=== PATIENT | female | born 1995 | race Caucasian/White ===

== ENCOUNTER 2016-11-17 16:30 | Emergency (ER) | payer OTHER ==
[~2016-11-17] VITALS: Ht 149.9 cm; Wt 66.4 kg
[2016-11-17 16:39] VITALS: Ht 149.9 cm; Wt 66.4 kg
--- NOTE | 2016-11-17 16:45 | ERPDOC ---
Departure Disposition Decision Date: Nov 17, 2016 Disposition Decision Time: 18:15 Disposition: 01 DISCHARGED HOME, SELF-CARE Impression Impression Impression: Primary Impression: GERD (gastroesophageal reflux disease) Esophagitis presence: with esophagitis Qualified Codes: K21.0 - Gastro- esophageal reflux disease with esophagitis Severity: Moderate Condition: Improved Seen By: Mid-level only Referrals: DESMOND LUTHER MD (Family) COOKIE CHAVIRA MD Patient Instructions: Gastroesophageal Reflux Disease (ED), Pharyngitis (ED) Problems/Meds/Labs Reviewed?: Yes Medications reviewed and manag: Yes Additional Instructions: Your rapid strep was negative. Take your already prescribed Nexium (this medication must be taken daily to be effective). Take OTC pepcid or Zantac twice daily for first 4-5 days after restarting Nexium. Follow treatment plan. Dr. Chavira's nurse will call you tomorrow to set appointment. Follow up care ordered?: Yes Mental Status: Alert, Oriented HPI - General Medical General Stated Complaint: HURTS TO SWALLOW/HARD TO BREATHE Time Seen by Provider: 16:44 Source: patient HPI - General Medical Initial Comments 21 YO F presents to ED with report of feeling like something is caught in her esophagus. Patient has been able to keep fluids down and says she has only eaten a little solid food because it "licea". Says it hurts to swallow for past 2 days. Patient says has a sore throat in the morning which improves throughout the day. Patient does have a hx. of GERD and has not being taking the Nexium her PCP instructed her to take. Patient says she does not think this is GERD. Patient states she had an EGD several years ago and was told it was "terrible down there", when asked what she meant by that she said her esophagus. Patient could not elaborate on anything else regarding the finding of EGD. Pain Scale: Now: 7/10 Associated Symptoms: DENIES: cough, diaphoresis, fever/chills, malaise, nausea/ vomiting, shortness of breath Allergies: Coded Allergies: Penicillins (Verified Allergy, Intermediate, 11/17/16) Past History Past Medical History Metabolic: DENIES: diabetes Cardiac: DENIES: angina Respiratory: DENIES: asthma GI: GERD Female: DENIES: renal insufficiency Neurological: DENIES: seizures Musculoskeletal: DENIES: rheumatoid arthritis Hematologic: DENIES: anemia Psychological: depression Surgical History General: EGD Family History Family PMH: FOUND: other (noncontributory) Social History Current Occupational Status: student Review of Systems Constitutional Constitutional: DENIES: chills, dizziness, fever, weakness Eyes General: DENIES: erythema, exudate Lids/Accessories: DENIES: erythema, swelling ENMT Ears: DENIES: pain Hearing: DENIES: hearing loss Sinuses: DENIES: congestion, rhinorrhea Mouth/Throat: sore throat Cardiovascular Cardiac: DENIES: chest pain, murmur Pulmonary Respiratory: DENIES: cough, dyspnea GI Upper Abdomen: pain, see HPI, DENIES: nausea, vomiting Lower Abdomen: DENIES: diarrhea, pain General: DENIES: dysuria, pain Musculoskeletal General: DENIES: joint pain, pain, tenderness Integumentary Skin: DENIES: color change, itching, rash Neurological General: DENIES: ataxia, change in strength, numbness, paralysis/paresis, weakness Psychiatric Psychiatric: DENIES: anxiety, depression, nervousness Physical Exam General General Nourishment: well nourished, well developed, no acute distress, adult General Body Habitus: well groomed Vitals and Pain First Documented Vital Signs Date Time Temp Pulse Resp B/P Pulse Ox O2 Delivery O2 Flow Rate FiO2 11/17/16 16:39 98.7 105 16 122/58 96 Room Air Weight: Kilograms: Height (feet): Height (inches): Triage Pain Scale: Eyes (brief) Eyes Brief: found: EOMI, PERRL ENMT (brief) ENMT Brief: FOUND: TM clear, TM good light reflex, mucosa moist, other ( tonsils 2+ tara with erythema), pharnyx erythema, NOT FOUND: nasal exudate, nasal swelling Neck (brief) Neck: FOUND: trachea midline, NOT FOUND: adenopathy, tenderness, thyromegaly Respiratory (brief) Respiratory: FOUND: clear all junior, equal bilaterally, symmetrical Cardiovascular Auscultation: FOUND: S1, S2, rate (98), regular Abdomen Inspection: NOT FOUND: distention Palpation: FOUND: soft, NOT FOUND: hepatomegaly, involuntary guarding, rebound , splenomegaly, tender (no reproducible pain to palpation), voluntary guarding Auscultation: FOUND: normoactive (x4) Musculoskeletal (brief) Musculoskeletal Brief: NOT FOUND: deformity, loss of motion Integumentary (brief) Integumentary Brief: FOUND: dry, pink, warm Neurologic (brief) Neurological Brief: FOUND: CN w/o gross def to obs, motor-no gross deficits, sensory-no gross deficits Psychiatric (brief) Psychiatric Brief: FOUND: alert, oriented, NOT FOUND: normal affect (anxious) Differential Diagnoses Considering: Abscess, Pharyngitis Considering: GERD, Ulcer, Other (esophagitis) Progress Results/Orders Orders Procedure Category Date Status Time Strep A Antigen Screen LAB 11/17/16 Complete 16:54 G.I. Cocktail PHA 11/17/16 Complete (/Maalox/Lidocaine 17:00 Group A Strep Culture MARKELL 11/17/16 Complete 17:33 Ketorolac (Toradol) PHA 11/17/16 Complete 18:30 Lab Results Laboratory Tests Test 11/17/16 17:00 Group A Streptococcus Screen Negative Medications Current ED Medications Pharmacy Profile Note (/Maalox/ Lidocaine Soln) 30 ml O ONCE PO Last administered on 11/17/16 17:01; Start 11/17/16 at 17:00; Stop 11/17/16 at 17:01 ; Status DC Ketorolac Tromethamine (Toradol) 60 mg O ONCE IM Last administered on 18:28; Start 11/17/16 at 18:30; Stop 11/17/16 at 18:31; Status DC Progress Progress Patient was able to keep GI cocktail down and approx. 16 oz of water in the ED with out emesis or water coming back up. I explained to patient that she does not have a food bolus because she is keeping fluids down, and reports she has eaten solid food as well. I discussed conversation I had with Dr. Chavira with patient. I believe patient has GERD with some mild esophagitis. I discussed treatment plan, follow up with Dr. Chavira and return precautions which patient verbalized understanding. VS improved. Patient reports she is feeling better after Toradol. Consult/PCP Consult/PCP : Type of discussion: Phone Consult/PCP Discussion Details I discussed patient's HPI, PMH, exam findings with Dr. Chavira. Dr. Chavira said he would come by the ED and get patient's phone number so his nurse can set up office appointment for follow up. I spoke with Dr. Chavira in the ED. Patient is able to keep fluids down. Dr. Chavira is not concerned that patient has a retained food bolus. ANNABELLE BALKE APRN Nov 17, 2016 16:45
[2016-11-17] MEDS ORDERED: G.I. COCKTAIL 30ml PO ONE (17:00)
[2016-11-17] MEDS ORDERED: ESOM20CA PO (17:23)
[2016-11-17] MEDS ORDERED: NORE1TAB62 PO (17:23)
[2016-11-17] MEDS ORDERED: SERT25TA PO (17:23)
[2016-11-17] MEDS ORDERED: CIPR-212 PO (17:23)
--- OUTSIDE RECORDS SUMMARY | 2016-11-17 17:25 | XMS REPORT | Summary of Care ---
Author Author Marcus Serrano, [employer] Unknown Address [address] [place], [place] [id number] Phone Unavailable Care Team Providers Care Cosmetology Educator Name Role Phone Outside, Physician PP Unavailable Functional Status Functional Status Health Issues* Name Dates Details Functional status health issues are not documented Status: Cognitive Status Health Issues* Name Dates Details Cognitive status health issues are not documented Status: Problems Name Dates Details Fracture of nasal bone (802.0, S02.2XXA) Status: Active Nasal septal deviation (470, J34.2) Status: Active Closed fracture of nasal bone, initial encounter (802.0, S02.2XXA) Status: Active Fracture of nasal bones, with routine healing, subsequent encounter (V54.19, S02.2XXD) Status: Active Hypertrophy of tonsils (474.11, J35.1) Status: Active Medications Name Dates Details NexIUM 20 MG Oral Packet * Started 12-Nov-2014 Active Allergies and Adverse Reactions Name Dates Details Penicillins Status: Active Procedures Procedure Dates Details History of Esophagoscopy History of Closed Treatment Of Nasal Bone Fracture Procedures not documented Immunization Name Dates Details Immunizations not documented Social History Smoking Status* Unknown if ever smoked Vital Signs Date Test Result Details No Known Vitals to report Results Date Description Value Details 12-Nov-2014 13:37 CT FACIAL BONES Comments: Exam Date: 12: 49Dictation Date: 13:37 XC FACIAL BONES (Better) 15:20 CBC w/ Auto Diff 7150 WBC 10.9 K/uL (Better) Range: 4.5-11.0 RBC 4.77 mil/uL (Better) Range: 3.60-5.00 HGB 14.8 g/dL (Better) Range: 12.0-16.0 HCT 43.5 % (Better) Range: 36.0-48.0 MCV 91.3 fL (Better) Range: 80.0-99.0 MCH 31.1 pg (Better) Range: 27.3-32.5 MCHC 34.1 % (Better) Range: 32.0-36.0 RDW 13.0 % (Better) Range: 11.6-14.8 PLATELETS 350 K/uL (Better) Range: 150-400 MPV 7.1 fL (Better) Range: 6.0-11.0 %NEUTRO 59.3 % (Better) Range: 37.0-80.0 %LYMPHS 30.3 % (Better) Range: 13.0-50.0 %MONO 5.6 % (Better) Range: 0.0-12.0 %EOS 2.4 % (Better) Range: 0.0-7.0 %BASO 0.5 % (Better) Range: 0.0-2.5 %MANOHAR 2.1 % (Better) Range: 0.0-5.0 NEUTRO 6.4 K/uL (Better) Range: 2.0-6.9 LYMPHS 3.3 K/uL (Better) Range: 0.6-3.4 MONOS 0.6 K/uL (Better) Range: 0.0-0.9 EOS 0.3 K/uL (Better) Range: 0.0-0.7 BASO 0.1 K/uL (Better) Range: 0.0-0.2 15:45 SERUM TEST 8020 Comments: atr asc on 11/15/14 SERUM TEST Negative (Better) Range: Negative Comments: Internal Control: Acceptable----- Plan of Care Planned Observations* Name Dates Details Planned Goals not documented Goal Instructions * Instructions not documented Encounters Appointment; Mitchel Velazquez Encounter Diagnosis: Problem not documented On 04-Dec-2014 10:15 Appointment; Mitchel Velazquez Encounter Diagnosis: Problem not documented On 15-Nov-2014 11:15 Appointment; Mitchel Velazquez Encounter Diagnosis: Problem not documented On 12-Nov-2014 14:30
--- OUTSIDE RECORDS SUMMARY | 2016-11-17 17:25 | XMS REPORT | Summary of Care ---
Author Author Marcus Serrano, [employer] Unknown Address [address] [place], [place] [id number] Phone Unavailable Care Team Providers Care Favor Maker Name Role Phone Outside, Physician PP Unavailable [...] bone, initial encounter (802.0, S02.2XXA) Status: Active Medications Name Dates Details NexIUM 20 MG Oral Packet * Started 12-Nov-2014 Active Allergies and Adverse Reactions Name Dates Details Penicillins Status: Active Procedures Procedure Dates Details History of Esophagoscopy Procedures not documented Immunization Name Dates Details [...] Dates Details Planned Goals not documented Goal Planned Encounters* Appointment; Provider: Mitchel Velazquez On 15-Nov-2014 11:15 Instructions * Instructions not documented Encounters Appointment; Mitchel Velazquez Encounter Diagnosis: Problem not documented On 12-Nov-2014 14:30
[2016-11-17] MEDS ORDERED: KETOROLAC 60mg/2ml INJECTION IM ONE (18:30)
--- NOTE | 2016-11-17 18:58 | NUR ---
PROVIDER LUBA IN ROOM
[2016-11-17 19:06] VITALS: BP 139/64; PULSE 125; RESP 16; TEMP 98.7; O2SAT 96
--- NOTE | 2016-11-17 19:06 | NUR ---
DEPART VERBAL AND WRITTEN DISCHARGE INSTRUCTIONS GIVEN AND UNDERSTOOD. CONDITION STABLE. RELEASED AMBULATORY.
== END 2016-11-17 19:06 | disposition home or self-care (01) ==
LOC: ED 16:30
DX: K21.0 Gastro-esophageal reflux disease with esophagitis (principal)
CPT/HCPCS: 87081; 87430; 96372; 99283; J1885; J7999

== ENCOUNTER → 2016-11-19 | Outpatient (CLI) | payer OTHER ==
[~2016-11-19] MED LIST: CIPR-212 PO; ESOM20CA PO; NORE1TAB62 PO; SERT25TA PO
--- NOTE | 2016-11-19 10:29 | DI ---
Indication:ITS.REASON: R13.14 DYSPHAGIA Procedure:ESOPHAGRAM ESOPHAGRAM: Technique:After ingesting air crystals, the patient swallowed thick and thin barium without difficulty. Fluoroscopic imaging was obtained in the upright LPO, supine AP, and right lateral positions. Findings:The esophagus is normal. Esophageal motility appears normal. The cricopharyngeus muscle relaxes completely. There is no Zenker's diverticulum. No hiatal hernia or gastroesophageal reflux is visualized. Impression: Normal esophagram. Fluoroscopy dose: 38.98 mGy (Cumulative air kerma) Duc Colbert RPA/IAN performed this under my direct supervision. .
== END ==
LOC: IMA 08:23
PROVIDERS: ATTEND Surgery
DX: R13.14 Dysphagia, pharyngoesophageal phase (principal)

== ENCOUNTER 2016-12-01 07:05 | Day surgery (SDC) | payer OTHER ==
[~2016-12-01] VITALS: Ht 149.9 cm; Wt 64.4 kg
[~2016-12-01 07:05] MED LIST changes: -CIPR-212 PO; +FAMO-137 PO; +LIDOCAINE 1% (10mg/ml) 2ml SDV INJ ONE; +LR 1,000 ML IV SCH; +NYST5ORA7 PO
--- OUTSIDE RECORDS SUMMARY | 2016-12-01 07:09 | XMS REPORT | Continuity of Care Document ---
Author Author [facility] Organization [facility] Address Unknown Phone Unavailable Support Name Relationship Address Phone TERRANCE HIGGINBOTHAM Caregiver [address] [place] [address] CADENCE MAY MD Caregiver [address] [place], [place] [address] CHRISTEN NEGRA Next Of Kin [address] [place] [id number] Insurance Providers Payer Name Policy Number Subscriber Name Relationship Self Pay Rehana Ackerman 18 Self / Same As Patient Chief Complaint and Reason for Visit Chief Complaint Injury Reason for Visit [id number] Problems Medical Problems Problem Onset Date Status Nose deformity Unknown Active Medications Medication Dose Route Sig Days/Qty Instructions Order Date Discontinued Date Status Esomeprazole Magnesium 20 Mg ORAL DAILY 11/09/14 Active Acetaminophen/Codeine 1 Tab ORAL EVERY 6 HOURS 20 Qty 1-2 po q6hrs prn severe pain 11/09/14 Active Social History No social history. Hospital Discharge Instructions No hospital discharge instructions. Plan of Care Discharge Date 11/09/14 8:30pm Disposition 01 HOME OR SELF-CARE Condition at Discharge Stable Instructions/Education Provided Nasal Fracture (ED) Prescriptions See Medications Section Additional Instructions/Education Call Dr. Velazquez's office Mon AM. OTC Naproxen up to twice daily with food as needed, as main pain med. Tylenol III as Rx'd, as needed for severe pain (mainly at bedtime). Some of your test results may not be complete prior to your leaving the Emergency Department. The Emergency Department is not authorized to give test results over the phone. Please contact the doctor's office listed in this packet of information for your final results. Follow up with your primary care physician or return to the Emergency Department for worsening or worrisome symptoms. * Emergency Department phone number: [phone], x [phone]* MEDICAL RECORD If you need copies of your X-rays, call [phone]. If you need copies of your medical record, including lab results, a signed authorization for release of records will be required. A telephone call for release of Health Information is not allowed. BILLING Billing can sometimes be confusing and frustrating. To help avoid confusion in the future, please take a moment to acquaint yourself with the billing parties for services. [employer] [employer] Emergency Room Services [facility] Physician Services [facility] X-rays [facility] Patients will receive bills for services from the appropriate provider. If you have any questions about your [facility] bill, our staff will be happy to assist you. Please call [phone], and ask for the billing department. THANK YOU for choosing [facility] as your emergency care provider! Functional Status No functional status results. Allergies, Adverse Reactions, Alerts Allergen Type Severity Reaction Status Last Updated Penicillin Allergy Unknown HIVES Active 11/09/14 Immunizations No immunization records. Vital Signs Acute Vital Signs Vital Response Date/Time Temperature (Fahrenheit) 9.2 Pulse 93 bpm Respirations 18 Height 4 ft 11 in Weight 139 lb Body Mass Index 28.0 kg/m^2 Results No known relevant diagnostic tests, laboratory data and/or discharge summary. Procedures No known history of procedures. Encounters Encounter Location Date/Time Registered Emergency Room [facility] 11/09/14 5:17pm Recent Diagnosis
--- OUTSIDE RECORDS SUMMARY | 2016-12-01 07:09 | XMS REPORT | Summary of Care ---
Author Author Marcus Serrano, Mitchel Organization Unknown Address [address] [place], [place] [id number] Phone Unavailable Care Team Providers Care Theater Set Production Designer Name Role Phone Outside, Physician PP Unavailable Functional Status Functional Status Health Issues* Name Dates Details Functional status health issues are not documented Status: Cognitive Status Health Issues* Name Dates Details Cognitive status health issues are not documented Status: Problems Name Dates Details Fracture of nasal bone (802.0, S02.2XXA) Status: Active Medications Name Dates Details NexIUM 20 MG Oral Packet * Started 12-Nov-2014 Active Allergies and Adverse Reactions Name Dates Details Penicillins Status: Active Procedures Procedure Dates Details History of Esophagoscopy CBC w/ Auto Diff 7150 Ordered:12-Nov-2014 SERUM TEST 8020 Ordered:12-Nov-2014 Immunization Name Dates Details Immunizations not documented Social History Smoking Status* Unknown if ever smoked Vital Signs Date Test Result Details No Known Vitals to report Results Date Description Value Details 12-Nov-2014 13:37 CT FACIAL BONES Comments: Exam Date: 12: 49Dictation Date: 13:37 XC FACIAL BONES (Better) Plan of Care Planned Observations* Name Dates Details Planned Goals not documented Goal Instructions * Instructions not documented Encounters Appointment; Mitchel Velazquez Encounter Diagnosis: Problem not documented On 12-Nov-2014 14:30
--- OUTSIDE RECORDS SUMMARY | 2016-12-01 07:09 | XMS REPORT | Continuity of Care Document ---
Author Author [facility] Organization [facility] Address Unknown Phone Unavailable Support Name Relationship Address Phone LACYMAHIN GREGORY Caregiver [address] [place] [address] Unavailable DESMOND LUTHER MD Caregiver [address] [place] [address] Unavailable DANIELA ACKERMAN Next Of Kin [address] [place] [address] Insurance Providers Guarantor Rehana Ackerman Address [address] [place] [address] Email [email or web address] Payer [employer] Policy Number [id number] Subscriber's Name Daniela Ackerman Relationship 19 Child Group Number [id number] Advance Directives Directive Response Recorded Date/Time Advanced Directives Type None 11/17/16 4:39pm Chief Complaint and Reason for Visit Chief Complaint Throat Pain/Injury Reason for Visit GERD (gastroesophageal reflux disease) Problems Past Problems Medical Problem Onset Date GERD (gastroesophageal reflux disease) Unknown Medications Current Home Medications Medication Dose Units Route Directions Days Qty Instructions Start Date Ciprofloxacin Hcl (Cipro) 500 Mg Tablet 500 Mg Oral Every 12 Hours 11/17/16 Esomeprazole Mag Trihydrate (Nexium) 20 Mg Capsule 20 Mg Oral Daily 11/17/16 Norethindrone Ac-Eth Estradiol (Microgestin 21 1-20 Tablet) 1 Each Tablet 1 Tab Oral Bedtime 11/17/16 Sertraline Hcl (Zoloft) 25 Mg Tablet 25 Mg Oral Daily 11/17/16 Social History Query Response Start Date Stop Date Smoking Status Unknown if ever smoked Hospital Discharge Instructions No hospital discharge instructions. Plan of Care Discharge Date 11/17/16 7:06pm Disposition 01 DISCHARGED HOME, SELF-CARE Condition at Discharge Stable Instructions/Education Provided Pharyngitis (ED) Gastroesophageal Reflux Disease (ED) Prescriptions See Medication Section Referrals DESMOND LUTHER MD Address: [address] [place] [address] Note: COOKIE CHAVIRA MD Address: [address] [place] [address] [place] [phone] Additional Instructions/Education Your rapid strep was negative. Take your already prescribed Nexium (this medication must be taken daily to be effective). Take OTC pepcid or Zantac twice daily for first 4-5 days after restarting Nexium. Follow treatment plan. Dr. Chavira's nurse will call you tomorrow to set appointment. Care Plan and Goals Physician Care Plan Problem: GERD Goal: Follow up with primary care provider Instructions: Take medications and follow care plan as discussed/written Functional Status No functional status results. Allergies, Adverse Reactions, Alerts Allergen Type Severity Reaction Status Last Updated Penicillin Allergy Intermediate Active 11/17/16 Immunizations No immunization records. Vital Signs Acute Vital Signs Vital Response Date/Time Temperature (Fahrenheit) 98.7 deg F (96.8 - 99.1) 11/17/2016 7:06pm Temperature (Calculated Celsius) 37.66447 degrees C (36.0 - 37.3) 11/17/2016 7:06pm Pulse Rate (adult) 125 bpm (60 - 100) 11/17/2016 7:06pm Respiratory Rate 16 breaths/min (10 - 20) 11/17/2016 7:06pm O2 Sat by Pulse Oximetry 96 % (90 - 100) 11/17/2016 7:06pm Blood Pressure 139/64 mm Hg 11/17/2016 7:06pm Height (Feet) 4 feet 11/17/2016 4:39pm Height (Inches) 11.00 inches 11/17/2016 4:39pm Weight (Kilograms) 66.400 kg 11/17/2016 4:39pm Body Mass Index (BMI) 29.0 11/17/2016 4:39pm Results Laboratory Results Test Name Result Units Flags Reference Collection Date/Time Result Date/ Time Comments Group A Streptococcus Screen NEGATIVE NEGATIVE 11/17/2016 5:00pm 5:33pm Strep culture confirmation to follow Microbiology Results Procedure Source Organism/Result Collection Date/Time Result Date/Time Result Status Group A Streptococcus Culture Throat CULTURE INITIATED - RESULTS PENDING 5:33pm 11/17/2016 5:34pm Preliminary Procedures No known history of procedures. Encounters Encounter Location Arrival/Admit Date Discharge/Depart Date Attending Provider Departed Emergency Room [facility] 11/17/16 4:30pm 11/17/16 7: 06pm [facility] DO Recent Diagnosis
[2016-12-01 07:37] VITALS: BP 124/58; PULSE 89; RESP 16; TEMP 98.1; O2SAT 100
[2016-12-01 07:50] VITALS: Ht 149.9 cm; Wt 64.4 kg
[2016-12-01] MEDS ORDERED: BENZOCAINE 20% Top. Anesth. SPRAY UD ONE (08:22)
[2016-12-01] MEDS ORDERED: LIDOCAINE VISCOUS 2% Oral Soln 15ml UD ONE (08:22)
--- NOTE | 2016-12-01 08:57 | ANESPREOP ---
Anesthesia Record Date and Time DATE: 12/01/16 TIME: 08:57 Proposed Surgical Procedure EGD Allergies: Coded Allergies: Penicillins (Verified Allergy, Intermediate, 12/01/16) Ht/Wt/BMI Height: 4 ' 11.00 " Weight: 64.400 kg BMI: 28.7 kg/m2 Vital Signs Date Time Temp Pulse Resp B/P Pulse Ox O2 Delivery O2 Flow Rate FiO2 12/01/16 07:37 98.1 89 16 124/58 100 Room Air Medications Inpatient Medications Current Medications Medications (Trade) Dose Ordered Sig/Antonio Start Time Stop Time Status Last Admin Dose Admin Lactated Ringer's (Lactated Ringers) 1,000 ml @ 50 mls/hr Q20H 12/01/16 07:00 12/01/16 07:52 50 MLS/HR Esomeprazole Mag Trihydrate (Nexium) 20 Mg Capsule, 20 MG PO DAILY, (Reported) Last Taken: on 11/30/16 0900 Famotidine (Pepcid) 20 Mg Tablet, 1 TAB PO DAILY , (Reported) Last Taken: on 11/29/16 2200 Norethindrone AC-Eth Estradiol (Microgestin 21 1 -20 Tablet) 1 Each Tablet, 1 TAB PO HS, (Reported) Last Taken: on 11/29/16 Nystatin (Nystatin) 100,000 Unit/1 Ml Oral.susp, 5 ML PO QID, (Reported) 5 ml swish and swallow four times a day. Last Taken: on 11/30/16 2200 Sertraline (Zoloft) 25 Mg Tablet, 25 MG PO DAILY , (Reported) Currently on Beta Ludin: No Medical/Surgical History Anesthesia PMH: Reports: Reflux (HX OF), Denies: Anesthesia Reactions, Arthritis, Cancer, Clotting Problems, Glaucoma, Malignant Hyperthermia, Renal Disease, Sleep Apnea Smoking Status: Never smoker Use Chewing Tobacco?: No Substance Use Type: does not use Alcohol Intake: none Last Drink: hours (ago) (8) HX of Last Menstrual Period: OCTOBER 2016 Past Surgical History Orthopedic Surgeries: Abdominal Surgeries: Genitourinary Surgeries: Cardiac Surgeries: Endocrine Surgeries: Reproductive Surgeries: Neurological Surgeries: Ear Surgeries: Nose Surgeries: Yes - FRACTURE Throat Surgeries: Other Surgeries: Yes - EGD Anesthesia Adverse Reactions: FOUND none Family Hx of Anesthesia Advers: none Hx of Motion Sickness: No Pertinent Findings Test 12/01/16 07:30 Urine Test Negative (NEGATIVE) Physical Exam Respiratory: Lungs clear Cardiovascular: FOUND Regular rate, rhythm Airway Assessment Mallampati Score: I TMD: 3 Fingerbreadths Neck Extension: Good Overall Assessment: No Airway Concerns ASA: 1 Plan Anesthesia Plan: TIVA Discussion Discussed risks/options/alternatives of anesthesia and questions answered. Patient consents. Nursing pain assessment noted. Present: Friend Attestation Statement Prior to the delivery of any anesthetic medication, I examined the patient, developed the plan, obtained the patient's consent and discussed the risk and benefits of the procedure with the patient/guardian. ELIJAH WATSON ANALYTICS MANAGER Dec 01, 2016 08:57
[2016-12-01] MEDS ORDERED: MIDAZOLAM 2mg/2ml INJECTION ONE (08:59)
[2016-12-01] MEDS ORDERED: PROPOFOL 500mg 50 ML IV ONE (09:00)
[2016-12-01 09:24] VITALS: BP 99/60; PULSE 69; RESP 14; TEMP 97.1; O2SAT 99
--- NOTE | 2016-12-01 09:28 | GSPOSTPROC ---
Immediate Operative Note DATE: 12/01/16 TIME: 09:27 Postop Diagnosis: Dysphagia Surgical Procedure: EGD w/Biopsies Surgeon: Grzegorz ASA: 1 COOKIE CHAVIRA MD Dec 01, 2016 09:28
--- NOTE | 2016-12-01 09:32 | ANESPO ---
Post-Op Note Date 12/01/16 Time: 09:32 Status Pt Participated in Evaluation: Pt participated in person Vital Signs Date Time Temp Pulse Resp B/P Pulse Ox O2 Delivery O2 Flow Rate FiO2 12/01/16 07:37 98.1 89 16 124/58 100 Room Air Respiratory Function: Airway patent Cardiovascular Function: Regular pulse Mental Status: Alert/oriented Pain Level Intensity: 0 Hydration: IV infusing Complications during Recovery None apparent Follow-Up Instructions Instructions Per Surgeon ELIJAH WATSON CRNA Dec 01, 2016 09:32
[2016-12-01 09:35] VITALS: BP 98/62; PULSE 70; RESP 16; O2SAT 97
[2016-12-01 09:50] VITALS: BP 87/54; PULSE 74; RESP 16; O2SAT 97
[2016-12-01 10:00] VITALS: BP 93/61; PULSE 74; RESP 18; O2SAT 97
--- NOTE | 2016-12-01 13:14 | OPNOTEF ---
DATE OF OPERATION 12/01/2016 PREOPERATIVE DIAGNOSES 1. Substernal discomfort. 2. Dysphagia 3. Odynophagia. 4. History of gastroesophageal reflux disease. 5. Normal esophagram on 11/19/2016. POSTOPERATIVE DIAGNOSES 1. Substernal discomfort. 2. Dysphagia 3. Odynophagia. 4. History of gastroesophageal reflux disease. 5. Normal esophagram on 11/19/2016. OPERATION Esophagogastroduodenoscopy with biopsies. SURGEON Noel Lantigua MD ANESTHESIA TIVA ASA CLASS 1 FINDINGS The mucosa of the proximal and mid esophagus appeared completely normal. It did look as if there might be a little longitudinal furrowing at the distal esophagus. There was no distal esophagitis. There were no esophageal erosions or ulcers anywhere. There was no narrowing of the esophagus. There was no Schatzki's ring. There were no Toledo's esophagus changes at the esophagus. Gastric mucosa appeared completely normal. Duodenal mucosa appeared completely normal. DESCRIPTION OF OPERATION The patient was brought to the endoscopy room. The patient was placed on a cart in the endoscopy room. The patient was placed in left lateral recumbent position on the cart. The patient was premedicated with intravenous sedation medication administered by the nurse life enrichment assistant. The Olympus upper GI endoscope was used. The upper GI endoscope was introduced into the esophagus. The upper GI endoscope was advanced down through the esophagus and stomach and into the duodenum. The upper GI endoscope was then withdrawn from the duodenum back into the stomach. The upper GI endoscope was retroflexed and the gastroesophageal junction was viewed from below. The upper GI endoscope was straightened out. Stomach was examined further. The upper GI endoscope was then withdrawn from the stomach up into the esophagus. The endoscopic biopsy forceps was used to obtain multiple random biopsies of esophageal mucosa throughout the entire length of the esophagus. These biopsy specimens were all placed together in one container and submitted for study by the pathologist. The upper GI endoscope was then removed from the esophagus. Findings throughout the procedure were as described above. The patient did continue to receive intravenous sedation medication administered by the nurse life enrichment assistant throughout the operation. The patient did tolerate the operation well. PRANEETH
== END 2016-12-01 10:10 | disposition home or self-care (01) ==
LOC: NSC 07:05
PROVIDERS: ATTEND Surgery
DX: K21.0 Gastro-esophageal reflux disease with esophagitis (principal); K22.10 Ulcer of esophagus without bleeding; R13.10 Dysphagia, unspecified; F41.9 Anxiety disorder, unspecified; Z79.899 Other long term (current) drug therapy
CPT/HCPCS: 43239; 81025; J2250; J7120

== ENCOUNTER → 2016-12-26 | Outpatient (CLI) | payer OTHER ==
[~2016-12-26] MED LIST changes: -LIDOCAINE 1% (10mg/ml) 2ml SDV INJ ONE; -LR 1,000 ML IV SCH
--- NOTE | 2016-12-27 14:01 | DI ---
Indication: ITS.REASON: RIGHT THUMB PAIN PROCEDURE: FINGERS RIGHT 2 VIEW MIN: Encounter: Initial Comparison: None Findings: There is no acute fracture, dislocation or malalignment identified. Impression: No acute osseous abnormality. .
== END ==
LOC: IMA.CCC 14:19
PROVIDERS: ATTEND Nurse Practitioner Family
DX: M79.644 Pain in right finger(s) (principal); Z87.828 Personal history of other (healed) physical injury and trauma